=== PATIENT | female | born 1975 | race Caucasian/White ===

== ENCOUNTER 2018-01-02 11:55 | Emergency (ER) | payer BC ==
[2018-01-02] MEDS: KETOROLAC 30 MG INJ IM (12:49)
== END 2018-01-02 13:48 | disposition home or self-care (01) ==
LOC: FTE 11:55
DX: M25.551 Pain in right hip (principal)
CPT/HCPCS: 81025; 96372; 99284-25

== ENCOUNTER 2018-10-03 13:25 | Emergency (ER) | payer SELFPAY, BC ==
[2018-10-03] MEDS: PROMETHAZINE/CODEINE 5ML CUP PO (15:54)
== END 2018-10-03 16:15 | disposition home or self-care (01) ==
LOC: FTE 13:25
DX: J06.9 Acute upper respiratory infection, unspecified (principal)
CPT/HCPCS: 99283